=== PATIENT | male | born 1960 | race Hispanic/Latino ===

== ENCOUNTER → 2019-06-24 | Outpatient (CLI) | payer BC, OTHER ==
[2019-06-24 15:23] LABS: BILIRUBIN,URINE NEGATIVE (NEGATIVE); UROBILINOGEN,URINE NORMAL (NEGATIVE)
[2019-06-24 15:25] LABS: APPEARANCE,URINE CLEAR (CLEAR); UA COLOR YELLOW (YELLOW)
[2019-06-24 15:43] LABS: HEMOGLOBIN 14.5 g/dL (13.9-16.3); MEAN CELL HGB 28.2 pg (26-34); MEAN CELL HGB CONCENTRATION 33.3 g/dL (33-37); MEAN CORP VOLUME 84.6 fL (78-100); MEAN PLATELET VOLUME 9.5 fL (7.8-11.0); RED CELL DISTRIBUTION WIDTH 13.9 % (11.5-14.5); WHITE BLOOD CELL 5.6 10^3/uL (4.5-11.0)
--- NOTE | 2019-06-24 15:46 | PCM.EKG ---
[facility] Test Date: 2019-06-24 Test Time: 15:33:38 Pat Name: NAIF ZARATE Department: [id number] Room: Gender: M Addiction Specialist: : [id number] Requested By: CARLEY MILLER Order Number: [id number] Reading MD: Measurements Intervals [place] Rate: 59 P: 70 CO: 149 QRS: 63 QRSD: 99 T: 41 QT: 421 QTc: 417 Interpretive Statements Sinus rhythm No previous ECG available for comparison Please click the below link to view image of tracing.
--- NOTE | 2019-06-24 16:00 | DIREP ---
PROCEDURE:CHEST 2 VIEWS COMPARISON:None. INDICATIONS:CHEST PAIN, FATIGUE/MALAISE FINDINGS: LUNGS/PLEURA:No significant pulmonary parenchymal abnormalities. No effusions. The right hemidiaphragm. The lungs are clear. No pneumonia, heart failure or effusions are seen. No pneumothorax, pneumomediastinum, aortic aneurysm or mediastinal widening is seen. No obvious pulmonary nodules or perihilar mass lesions are seen VASCULATURE:Normal. Unremarkable pulmonary vasculature. CARDIAC:Normal. No cardiac silhouette abnormality or cardiomegaly. MEDIASTINUM:Normal. No visible mass or adenopathy. BONES:Normal. No fracture or visible bony lesion. OTHER:Negative. CONCLUSION:No active disease. Dictated by: Bakari Kay MD on 06/24/2019 at 03:58 PM
[2019-06-24 16:11] LABS: CALCIUM 8.9 mg/dL (8.4-10.5); CARBON DIOXIDE 28.6 mmol/L (20.0-32)
== END | disposition home or self-care (01) ==
LOC: LAB 14:57
PROVIDERS: ATTEND Nurse Practitioner Family
DX: R07.9 Chest pain, unspecified (principal); R53.83 Other fatigue
CPT/HCPCS: 36415; 71046; 80053; 80061; 81002; 83036; 84153; 84439; 84443; 84480; 85027; 87086; 93005

== ENCOUNTER → 2020-01-06 | Outpatient (CLI) | payer OTHER | END | disposition home or self-care (01) | LOC: LAB 18:22 | PROVIDERS: ATTEND Nurse Practitioner Family | DX: Z12.5 Encounter for screening for malignant neoplasm of prostate (principal); R79.9 Abnormal finding of blood chemistry, unspecified | CPT/HCPCS: 36415; 83036; 84153 ==